=== PATIENT | female | born 1955 | race Caucasian/White ===

== ENCOUNTER 2020-03-12 06:20 | Observation (INO) ==
[2020-03-12 07:21] LABS: Basophils # 0.1 10*3/uL (0.0-0.2); Basophils % 0.4 % (0.0-0.8); Eosinophils # 0.3 10*3/uL (0.0-0.87); Eosinophils % 1.9 % (0.00-10.9); Hematocrit 39.4 VOL% (35.7-47.0); Hemoglobin 12.6 GM/DL (12.0-16.0); Immature Granulocytes % 0.7 %; Lymphocytes # 0.9 10*3/uL (1.4-4.0); Lymphocytes % 6.6 % (21.3-54.2); Mean Corpuscular Volume 95.9 FL (87-102); Mean Platelet Volume 8.6 FL (9.6-12.0); Monocytes % 6.2 % (1.7-12.7); Neutrophils % 84.2 % (38.7-73.9); Platelet Count 201 T/CUMM (130-400); Red Blood Count 4.11 MC/CUMM (3.8-5.5); Red Cell Distribution Width 13.7 % (9.3-17.3); White Blood Count 14.2 T/CUMM (4-12)
[2020-03-12 07:31] LABS: INR 1.4
[2020-03-12 07:47] LABS: Bilirubin,Urine Negative (Negative); Blood, Urine Negative (Negative); Glucose,Urine (UA) Negative (Negative); Ketones,Urine Negative (Negative); Nitrite,Urine Negative (Negative); Protein,Urine Negative; RBC,Urine 2 /HPF (0-4); Squamous Epithelial Cell,Urine Occasional /HPF (0-10); Urine Appearance CLEAR (Clear); Urine Color Straw (Yellow); Urine Specific Gravity 1.011 (1.001-1.035); Urine Urobilinogen < 2.0 EU/DL (0.2-1.0); WBC,Urine 1 /HPF (0-6)
[2020-03-12 07:59] LABS: Albumin 3.7 G/DL (3.4-5.0); Bilirubin,Total 1.2 MG/DL (0.2-1.0); Calcium 9.7 MG/DL (8.5-10.1); Osmolality,Calculated 266.9 MOS/KG (273-304); Total Protein 8.2 G/DL (6.4-8.3)
[2020-03-12] MEDS ORDERED: SODIUM BICARBONATE PEDIATRIC 5 MEQ/10 ML SYRINGE ONE (08:29)
[2020-03-12] MEDS ORDERED: CALCIUM CHLORIDE 1,000 MG/10 ML SYRINGE IV ONE (08:29)
[2020-03-12] MEDS ORDERED: DEXTROSE 50% 25 GM/50 ML SYRINGE IV ONE (08:29)
[2020-03-12] MEDS ORDERED: DEXTROSE 50% 25 GM/50 ML VIAL IV STA (08:36)
[2020-03-12] MEDS ORDERED: INSULIN REGULAR 100 UNIT/ML IV STA (08:37)
[2020-03-12] MEDS ORDERED: SODIUM BICARBONATE 50 MEQ/50 ML VIAL IV STA (08:37)
[2020-03-12] MEDS ORDERED: CALCIUM CHLORIDE 1,000 MG/10 ML SYRINGE IV STA (08:38)
[2020-03-12] MEDS ORDERED: DEXTROSE 50% 25 GM/50 ML VIAL IV PRN (10:19)
[2020-03-12] MEDS ORDERED: guaiFENesin/DM ER 600-30 MG TABLET PO PRN (10:19)
[2020-03-12] MEDS ORDERED: ACETAMINOPHEN 325 MG TABLET PO PRN (10:19)
[2020-03-12] MEDS ORDERED: ONDANSETRON 4 MG/2 ML VIAL IV PRN (10:19)
[2020-03-12] MEDS ORDERED: LACTULOSE 20 GM/30 ML UDCUP PO PRN (10:19)
[2020-03-12] MEDS ORDERED: hydrALAZINE 20 MG/1 ML VIAL IV PRN (10:19)
[2020-03-12] MEDS ORDERED: DOCUSATE SODIUM 100 MG CAPSULE PO PRN (10:19)
[2020-03-12] MEDS ORDERED: GLUCAGON 1 MG VIAL IM PRN (10:19)
[2020-03-12] MEDS ORDERED: ENOXAPARIN 40 MG/0.4 ML SYRINGE SUBCUT SCH (10:30)
[2020-03-12] MEDS: SODIUM CHLORIDE 0.9% 1,000 ML IV SCH ×2 (12:58→21:03)
[2020-03-12 13:00] LABS: Risk Ratio 1.79; Thyroid Stimulating Hormone 1.84 uIU/ml (0.358-3.74); VLDL CHOLESTEROL 5.2 MG/DL
[2020-03-12] MEDS ORDERED: SODIUM POLYSTYRENE SULFATE 15 GM/60 ML BOTTLE PO ONE (18:23)
[2020-03-12] MEDS: gemfibroziL 600 MG TABLET PO SCH (19:23)
[2020-03-12] MEDS: OMEGA 3 ACID ETHYL ESTERS 1 GM CAPSULE PO SCH (21:03)
[2020-03-12] MEDS: AMIODARONE 200 MG TABLET PO SCH (21:03)
[2020-03-12] MEDS: GABAPENTIN 300 MG CAPSULE PO SCH (21:03)
[2020-03-13 06:51] LABS: Basophils # 0.1 10*3/uL (0.0-0.2); Basophils % 0.6 % (0.0-0.8); Eosinophils # 0.3 10*3/uL (0.0-0.87); Eosinophils % 2.7 % (0.00-10.9); Hematocrit 37.6 VOL% (35.7-47.0); Hemoglobin 12.3 GM/DL (12.0-16.0); Immature Granulocytes % 0.8 %; Immature Granulocytes Absolute 0.07 #; Lymphocytes # 1.1 10*3/uL (1.4-4.0); Lymphocytes % 11.4 % (21.3-54.2); Mean Corpuscular HGB Conc 32.7 GM/DL (32-36); Mean Platelet Volume 9.6 FL (9.6-12.0); Monocytes % 7.8 % (1.7-12.7); Neutrophils % 76.7 % (38.7-73.9); Platelet Count 183 T/CUMM (130-400); Red Cell Distribution Width 13.6 % (9.3-17.3); White Blood Count 9.2 T/CUMM (4-12)
[2020-03-13 07:22] LABS: Calcium 9.6 MG/DL (8.5-10.1); Osmolality,Calculated 268.5 MOS/KG (273-304)
[2020-03-13] MEDS ORDERED: SODIUM POLYSTYRENE SULFATE 15 GM/60 ML BOTTLE PO ONE ×2 (07:51→16:28)
[2020-03-13] MEDS: POLYETHYLENE GLYCOL POWDER 17 GM PACK PO SCH (08:24)
[2020-03-13] MEDS: MULTIVITAMIN (CENTRUM) TABLET PO SCH (08:24)
[2020-03-13] MEDS: ASPIRIN EC 81 MG TABLET PO SCH (08:25)
[2020-03-13] MEDS: MELOXICAM 7.5 MG TABLET PO SCH (08:25)
[2020-03-13] MEDS: RIVAROXABAN 20 MG TABLET PO SCH (08:25)
[2020-03-13] MEDS: OMEGA 3 ACID ETHYL ESTERS 1 GM CAPSULE PO SCH ×2 (08:25→20:34)
[2020-03-13] MEDS: AMIODARONE 200 MG TABLET PO SCH ×2 (08:25→20:34)
[2020-03-13] MEDS: gemfibroziL 600 MG TABLET PO SCH ×2 (08:25→17:54)
[2020-03-13] MEDS: GABAPENTIN 300 MG CAPSULE PO SCH ×2 (08:25→20:34)
[2020-03-13] MEDS: VITAMIN E 400 UNIT CAPSULE PO SCH (09:07)
[2020-03-13 14:53] LABS: Calcium 9.1 MG/DL (8.5-10.1); Osmolality,Calculated 267.8 MOS/KG (273-304)
[2020-03-13] MEDS: SODIUM CHLORIDE 0.9% 1,000 ML IV SCH (17:49)
[2020-03-14] MEDS: SODIUM CHLORIDE 0.9% 1,000 ML IV SCH ×2 (06:08→10:06)
[2020-03-14 06:40] LABS: Basophils % 0.5 % (0.0-0.8); Eosinophils # 0.3 10*3/uL (0.0-0.87); Eosinophils % 3.1 % (0.00-10.9); Hematocrit 36.3 VOL% (35.7-47.0); Immature Granulocytes % 1.1 %; Immature Granulocytes Absolute 0.09 #; Lymphocytes # 1.3 10*3/uL (1.4-4.0); Mean Corpuscular HGB Conc 33.1 GM/DL (32-36); Mean Corpuscular Volume 93.3 FL (87-102); Mean Platelet Volume 8.9 FL (9.6-12.0); Monocytes % 8.4 % (1.7-12.7); Neutrophils % 71.9 % (38.7-73.9); Platelet Count 181 T/CUMM (130-400); Red Blood Count 3.89 MC/CUMM (3.8-5.5); Red Cell Distribution Width 13.6 % (9.3-17.3); White Blood Count 8.4 T/CUMM (4-12)
[2020-03-14 06:43] LABS: Calcium 8.6 MG/DL (8.5-10.1); Osmolality,Calculated 274.2 MOS/KG (273-304)
[2020-03-14] MEDS: ASPIRIN EC 81 MG TABLET PO SCH (08:49)
[2020-03-14] MEDS: POLYETHYLENE GLYCOL POWDER 17 GM PACK PO SCH (08:49)
[2020-03-14] MEDS: gemfibroziL 600 MG TABLET PO SCH (08:49)
[2020-03-14] MEDS: OMEGA 3 ACID ETHYL ESTERS 1 GM CAPSULE PO SCH (08:49)
[2020-03-14] MEDS: MULTIVITAMIN (CENTRUM) TABLET PO SCH (08:49)
[2020-03-14] MEDS: AMIODARONE 200 MG TABLET PO SCH (08:49)
[2020-03-14] MEDS: GABAPENTIN 300 MG CAPSULE PO SCH (08:49)
[2020-03-14] MEDS: MELOXICAM 7.5 MG TABLET PO SCH (08:49)
[2020-03-14] MEDS: VITAMIN E 400 UNIT CAPSULE PO SCH (08:49)
[2020-03-14] MEDS: RIVAROXABAN 20 MG TABLET PO SCH (08:49)
[2020-03-14 11:40] VITALS: BP 101/62
== END 2020-03-14 11:40 | disposition home or self-care (01) ==
LOC: EDBD → EDUNIT# → EDSEX → N.ED 06:20 → N.EDINP 06:20 → N.4E 14:37
PROVIDERS: ADMIT Internal Medicine; ATTEND Internal Medicine

== ENCOUNTER 2020-09-10 13:41 | Inpatient (IN) ==
[2020-09-10] MEDS ORDERED: cefTRIAXone 1,000 MG in SODIUM CHLORIDE 0.9% 100 ML IV STA (14:07)
[2020-09-10 14:56] LABS: Basophils # 0.1 10*3/uL (0.0-0.2); Basophils % 0.6 % (0.0-0.8); Eosinophils # 0.3 10*3/uL (0.0-0.87); Eosinophils % 2.5 % (0.00-10.9); Hemoglobin 10.9 GM/DL (12.0-16.0); Immature Granulocytes % 0.9 %; Immature Granulocytes Absolute 0.11 #; Lymphocytes # 1.4 10*3/uL (1.4-4.0); Lymphocytes % 11.2 % (21.3-54.2); Mean Corpuscular HGB Conc 31.1 GM/DL (32-36); Mean Corpuscular Volume 91.1 FL (87-102); Monocytes % 8.7 % (1.7-12.7); Neutrophils % 76.1 % (38.7-73.9); Platelet Count 263 T/CUMM (130-400); Red Blood Count 3.84 MC/CUMM (3.8-5.5); Red Cell Distribution Width 14.2 % (9.3-17.3); White Blood Count 12.3 T/CUMM (4-12)
[2020-09-10 15:14] LABS: Albumin 2.5 G/DL (3.4-5.0); Bilirubin,Total 0.6 MG/DL (0.2-1.0); Potassium 4.6 MMOL/L (3.5-5.1); Total Protein 6.8 G/DL (6.4-8.2)
[2020-09-10] MEDS ORDERED: GLUCAGON 1 MG VIAL IM PRN (17:09)
[2020-09-10] MEDS ORDERED: hydrALAZINE 20 MG/1 ML VIAL IV PRN (17:09)
[2020-09-10] MEDS ORDERED: ACETAMINOPHEN 325 MG TABLET PO PRN (17:09)
[2020-09-10] MEDS ORDERED: DEXTROSE 50% 25 GM/50 ML VIAL IV PRN (17:09)
[2020-09-10] MEDS ORDERED: ONDANSETRON 4 MG/2 ML VIAL IV PRN (17:09)
[2020-09-10] MEDS ORDERED: MORPHINE 4 MG/1 ML VIAL IV PRN (17:09)
[2020-09-10] MEDS ORDERED: ENOXAPARIN 40 MG/0.4 ML SYRINGE SUBCUT SCH (17:30)
[2020-09-10] MEDS: SODIUM CHLORIDE 0.9% 1,000 ML IV SCH (19:26)
[2020-09-10] MEDS: GABAPENTIN 300 MG CAPSULE PO SCH (22:19)
[2020-09-10] MEDS: VANCOMYCIN INJ 2,000 MG in SODIUM CHLORIDE 0.9% 500 ML IV SCH (22:20)
[2020-09-10] MEDS: AMIODARONE 200 MG TABLET PO SCH (22:20)
[2020-09-11 06:19] LABS: Basophils # 0.1 10*3/uL (0.0-0.2); Basophils % 0.6 % (0.0-0.8); Eosinophils # 0.4 10*3/uL (0.0-0.87); Eosinophils % 3.9 % (0.00-10.9); Hematocrit 32.7 VOL% (35.7-47.0); Hemoglobin 10.1 GM/DL (12.0-16.0); Immature Granulocytes Absolute 0.09 #; Lymphocytes # 1.1 10*3/uL (1.4-4.0); Lymphocytes % 11.7 % (21.3-54.2); Mean Corpuscular HGB Conc 30.9 GM/DL (32-36); Mean Corpuscular Volume 91.9 FL (87-102); Mean Platelet Volume 9.1 FL (9.6-12.0); Monocytes % 9.4 % (1.7-12.7); Neutrophils % 73.4 % (38.7-73.9); Platelet Count 245 T/CUMM (130-400); Red Blood Count 3.56 MC/CUMM (3.8-5.5); Red Cell Distribution Width 14.2 % (9.3-17.3); White Blood Count 9.5 T/CUMM (4-12)
[2020-09-11 06:37] LABS: Calcium 8.5 MG/DL (8.5-10.1); Osmolality,Calculated 283.8 MOS/KG (273-304); Potassium 4.8 MMOL/L (3.5-5.1)
[2020-09-11] MEDS: VANCOMYCIN INJ 2,000 MG in SODIUM CHLORIDE 0.9% 500 ML IV SCH (09:14)
[2020-09-11] MEDS: GABAPENTIN 300 MG CAPSULE PO SCH ×2 (09:15→22:13)
[2020-09-11] MEDS: gemfibroziL 600 MG TABLET PO SCH ×2 (09:15→16:54)
[2020-09-11] MEDS: PANTOPRAZOLE 40 MG TABLET PO SCH (09:15)
[2020-09-11] MEDS: AMIODARONE 200 MG TABLET PO SCH ×2 (09:15→22:14)
[2020-09-11] MEDS ORDERED: LIDOCAINE 1%/EPI INJ 20 ML VIAL ONE (10:24)
[2020-09-11] MEDS ORDERED: BUPIVACAINE MPF 0.25% 30 ML VIAL ONE (10:24)
[2020-09-11] MEDS ORDERED: SEVOFLURANE 1 UNIT/15 MINUTE INH ONE ×2 (10:44→12:01)
[2020-09-11] MEDS ORDERED: LIDOCAINE 2% 5 ML VIAL ONE (10:44)
[2020-09-11] MEDS ORDERED: propofoL 200 MG/20 ML VIAL IV ONE (10:44)
[2020-09-11] MEDS ORDERED: MIDAZOLAM 2 MG/2 ML VIAL ONE (10:45)
[2020-09-11] MEDS ORDERED: fentaNYL 100 MCG/2 ML VIAL ONE (10:45)
[2020-09-11] MEDS ORDERED: THROMBIN TOPICAL (RECOMBINANT) 5,000 UNIT VIAL TOP ONE (11:40)
[2020-09-11] MEDS ORDERED: SPRAY APPLICATOR KIT 1 EACH MISC ONE (11:41)
[2020-09-11] MEDS: SODIUM CHLORIDE 0.9% 1,000 ML IV SCH (18:41)
[2020-09-11] MEDS: cefTRIAXone 1,000 MG in SODIUM CHLORIDE 0.9% 100 ML IV SCH (22:14)
[2020-09-12] MEDS: VANCOMYCIN INJ 2,000 MG in SODIUM CHLORIDE 0.9% 500 ML IV SCH ×2 (02:31→22:20)
[2020-09-12] MEDS: SODIUM CHLORIDE 0.9% 1,000 ML IV SCH ×3 (02:31→21:37)
[2020-09-12 05:57] LABS: Basophils # 0.1 10*3/uL (0.0-0.2); Basophils % 0.7 % (0.0-0.8); Eosinophils # 0.3 10*3/uL (0.0-0.87); Eosinophils % 3.7 % (0.00-10.9); Hematocrit 31.4 VOL% (35.7-47.0); Hemoglobin 10.1 GM/DL (12.0-16.0); Immature Granulocytes % 0.6 %; Immature Granulocytes Absolute 0.05 #; Lymphocytes # 1.4 10*3/uL (1.4-4.0); Lymphocytes % 16.2 % (21.3-54.2); Mean Corpuscular HGB Conc 32.2 GM/DL (32-36); Mean Corpuscular Volume 90.5 FL (87-102); Monocytes % 8.3 % (1.7-12.7); Neutrophils % 70.5 % (38.7-73.9); Platelet Count 220 T/CUMM (130-400); Red Blood Count 3.47 MC/CUMM (3.8-5.5); Red Cell Distribution Width 13.8 % (9.3-17.3); White Blood Count 8.3 T/CUMM (4-12)
[2020-09-12 06:12] LABS: Calcium 8.3 MG/DL (8.5-10.1); Potassium 4.2 MMOL/L (3.5-5.1)
[2020-09-12] MEDS: gemfibroziL 600 MG TABLET PO SCH ×2 (08:45→16:31)
[2020-09-12] MEDS: AMIODARONE 200 MG TABLET PO SCH ×2 (08:45→21:39)
[2020-09-12] MEDS: GABAPENTIN 300 MG CAPSULE PO SCH ×2 (08:45→21:39)
[2020-09-12] MEDS: PANTOPRAZOLE 40 MG TABLET PO SCH (08:45)
[2020-09-12] MEDS: SODIUM HYPOCHLORITE 0.25% IRRIG 473 ML BOTTLE TOP SCH (14:01)
[2020-09-12] MEDS: cefTRIAXone 1,000 MG in SODIUM CHLORIDE 0.9% 100 ML IV SCH (21:37)
[2020-09-12] MEDS: CALCIUM (CARBONATE)/VITAMIN D 600 MG-400 UNIT TABLET PO SCH (21:39)
[2020-09-13 06:25] LABS: Basophils # 0.1 10*3/uL (0.0-0.2); Basophils % 1.2 % (0.0-0.8); Eosinophils # 0.3 10*3/uL (0.0-0.87); Eosinophils % 4.3 % (0.00-10.9); Hematocrit 31.5 VOL% (35.7-47.0); Hemoglobin 10.2 GM/DL (12.0-16.0); Immature Granulocytes Absolute 0.07 #; Lymphocytes # 1.1 10*3/uL (1.4-4.0); Lymphocytes % 15.3 % (21.3-54.2); Mean Corpuscular HGB Conc 32.4 GM/DL (32-36); Mean Corpuscular Volume 90.3 FL (87-102); Mean Platelet Volume 9.3 FL (9.6-12.0); Monocytes % 7.9 % (1.7-12.7); Neutrophils % 70.3 % (38.7-73.9); Platelet Count 226 T/CUMM (130-400); Red Blood Count 3.49 MC/CUMM (3.8-5.5); Red Cell Distribution Width 13.7 % (9.3-17.3); White Blood Count 6.9 T/CUMM (4-12)
[2020-09-13 06:45] LABS: Calcium 8.8 MG/DL (8.5-10.1); Osmolality,Calculated 274.8 MOS/KG (273-304); Potassium 4.3 MMOL/L (3.5-5.1)
[2020-09-13] MEDS: SODIUM CHLORIDE 0.9% 1,000 ML IV SCH ×2 (07:02→12:44)
[2020-09-13] MEDS ORDERED: SPIRONOLACTONE 100 MG TABLET PO SCH (08:00)
[2020-09-13] MEDS: CALCIUM (CARBONATE)/VITAMIN D 600 MG-400 UNIT TABLET PO SCH ×2 (08:32→21:29)
[2020-09-13] MEDS: RIVAROXABAN 20 MG TABLET PO SCH (08:32)
[2020-09-13] MEDS: gemfibroziL 600 MG TABLET PO SCH ×2 (08:32→16:48)
[2020-09-13] MEDS: AMIODARONE 200 MG TABLET PO SCH ×2 (08:32→21:29)
[2020-09-13] MEDS: SODIUM HYPOCHLORITE 0.25% IRRIG 473 ML BOTTLE TOP SCH (08:32)
[2020-09-13] MEDS: GABAPENTIN 300 MG CAPSULE PO SCH ×2 (08:32→21:29)
[2020-09-13] MEDS: PANTOPRAZOLE 40 MG TABLET PO SCH (08:32)
[2020-09-13] MEDS: POTASSIUM CHLORIDE 20 MEQ TABLET PO SCH (08:32)
[2020-09-13] MEDS: cefTRIAXone 1,000 MG in SODIUM CHLORIDE 0.9% 100 ML IV SCH (21:28)
[2020-09-14] MEDS: SODIUM CHLORIDE 0.9% 1,000 ML IV SCH (02:58)
[2020-09-14 05:59] LABS: Basophils # 0.1 10*3/uL (0.0-0.2); Basophils % 0.9 % (0.0-0.8); Eosinophils # 0.4 10*3/uL (0.0-0.87); Eosinophils % 3.8 % (0.00-10.9); Hematocrit 32.5 VOL% (35.7-47.0); Hemoglobin 10.5 GM/DL (12.0-16.0); Immature Granulocytes % 1.4 %; Immature Granulocytes Absolute 0.13 #; Lymphocytes # 1.4 10*3/uL (1.4-4.0); Lymphocytes % 14.7 % (21.3-54.2); Mean Corpuscular HGB Conc 32.3 GM/DL (32-36); Monocytes % 6.9 % (1.7-12.7); Neutrophils % 72.3 % (38.7-73.9); Platelet Count 269 T/CUMM (130-400); Red Blood Count 3.61 MC/CUMM (3.8-5.5); Red Cell Distribution Width 13.4 % (9.3-17.3); White Blood Count 9.3 T/CUMM (4-12)
[2020-09-14 06:17] LABS: Calcium 9.1 MG/DL (8.5-10.1); Osmolality,Calculated 274.8 MOS/KG (273-304); Potassium 3.9 MMOL/L (3.5-5.1)
[2020-09-14] MEDS: AMIODARONE 200 MG TABLET PO SCH (08:03)
[2020-09-14] MEDS: POTASSIUM CHLORIDE 20 MEQ TABLET PO SCH (08:03)
[2020-09-14] MEDS: GABAPENTIN 300 MG CAPSULE PO SCH (08:03)
[2020-09-14] MEDS: PANTOPRAZOLE 40 MG TABLET PO SCH (08:03)
[2020-09-14] MEDS: gemfibroziL 600 MG TABLET PO SCH ×2 (08:03→16:34)
[2020-09-14] MEDS: CALCIUM (CARBONATE)/VITAMIN D 600 MG-400 UNIT TABLET PO SCH (08:03)
[2020-09-14] MEDS: RIVAROXABAN 20 MG TABLET PO SCH (08:03)
[2020-09-14] MEDS: SODIUM HYPOCHLORITE 0.25% IRRIG 473 ML BOTTLE TOP SCH (08:07)
[2020-09-14 15:51] VITALS: BP 121/64
== END 2020-09-14 17:00 | disposition swing bed (61) | DRG 264 ==
LOC: N.ED 13:41 → N.EDINP 17:09 → SUATTDRO 17:09 → N.EDINP 18:25 → N.5E 18:44
PROVIDERS: ADMIT Phlebology; ATTEND Internal Medicine

== ENCOUNTER 2020-10-22 13:22 | Inpatient (IN) ==
[2020-10-22] MEDS ORDERED: SODIUM CHLORIDE 0.9% 1,000 ML IV STA (14:05)
[2020-10-22] MEDS ORDERED: cefTRIAXone 1,000 MG in SODIUM CHLORIDE 0.9% 100 ML IV STA (14:05)
[2020-10-22 15:18] LABS: Basophils # 0.1 10*3/uL (0.0-0.2); Basophils % 0.8 % (0.0-0.8); Eosinophils # 0.5 10*3/uL (0.0-0.87); Eosinophils % 5.1 % (0.00-10.9); Hemoglobin 10.5 GM/DL (12.0-16.0); Immature Granulocytes % 0.9 %; Immature Granulocytes Absolute 0.09 #; Lymphocytes # 1.6 10*3/uL (1.4-4.0); Lymphocytes % 15.4 % (21.3-54.2); Mean Corpuscular HGB Conc 30.9 GM/DL (32-36); Mean Corpuscular Volume 91.9 FL (87-102); Mean Platelet Volume 8.8 FL (9.6-12.0); Neutrophils % 66.8 % (38.7-73.9); Platelet Count 267 T/CUMM (130-400); Red Cell Distribution Width 14.6 % (9.3-17.3); White Blood Count 10.1 T/CUMM (4-12)
[2020-10-22 15:48] LABS: Calcium 8.8 MG/DL (8.5-10.1); Osmolality,Calculated 275.2 MOS/KG (273-304); Potassium 4.7 MMOL/L (3.5-5.1)
[2020-10-22 15:53] LABS: Bilirubin,Urine Negative (Negative); Blood, Urine Large mg/dL (Negative); Glucose,Urine (UA) Negative (Negative); Ketones,Urine Negative (Negative); Mucus,Urine Occasional /LPF (Occasional); Nitrite,Urine Positive (Negative); Protein,Urine Negative; RBC,Urine 227 /HPF (0-4); Squamous Epithelial Cell,Urine Occasional /HPF (0-10); Urine Appearance Slightly Hazy (Clear); Urine Color Yellow (Yellow); Urine Specific Gravity 1.009 (1.001-1.035); Urine Urobilinogen < 2.0 EU/DL (0.2-1.0)
[2020-10-22] MEDS ORDERED: DEXTROSE 50% 25 GM/50 ML VIAL IV PRN (19:04)
[2020-10-22] MEDS ORDERED: GLUCAGON 1 MG VIAL IM PRN (19:04)
[2020-10-22] MEDS ORDERED: ONDANSETRON 4 MG/2 ML VIAL IV PRN (19:04)
[2020-10-22] MEDS: AMIODARONE 200 MG TABLET PO SCH (21:23)
[2020-10-22] MEDS: GABAPENTIN 300 MG CAPSULE PO SCH (21:23)
[2020-10-22] MEDS: CIPROFLOXACIN INJ 400 MG/200 ML PREMIX IV SCH (21:25)
[2020-10-22] MEDS: OMEGA 3 ACID ETHYL ESTERS 1 GM CAPSULE PO SCH (23:57)
[2020-10-23] MEDS: traZODone 50 MG TABLET PO SCH ×2 (03:11→21:36)
[2020-10-23 05:57] LABS: Basophils # 0.1 10*3/uL (0.0-0.2); Basophils % 1.1 % (0.0-0.8); Eosinophils # 0.8 10*3/uL (0.0-0.87); Eosinophils % 10.4 % (0.00-10.9); Hematocrit 32.7 VOL% (35.7-47.0); Hemoglobin 9.9 GM/DL (12.0-16.0); Immature Granulocytes % 0.7 %; Immature Granulocytes Absolute 0.05 #; Lymphocytes # 1.4 10*3/uL (1.4-4.0); Lymphocytes % 19.7 % (21.3-54.2); Mean Corpuscular HGB Conc 30.3 GM/DL (32-36); Mean Corpuscular Volume 91.1 FL (87-102); Mean Platelet Volume 8.8 FL (9.6-12.0); Monocytes % 10.8 % (1.7-12.7); Neutrophils % 57.3 % (38.7-73.9); Platelet Count 251 T/CUMM (130-400); Red Blood Count 3.59 MC/CUMM (3.8-5.5); Red Cell Distribution Width 14.5 % (9.3-17.3); White Blood Count 7.2 T/CUMM (4-12)
[2020-10-23 06:13] LABS: Calcium 8.4 MG/DL (8.5-10.1); Osmolality,Calculated 272.2 MOS/KG (273-304); Potassium 3.9 MMOL/L (3.5-5.1)
[2020-10-23] MEDS: CIPROFLOXACIN INJ 400 MG/200 ML PREMIX IV SCH ×2 (06:36→23:30)
[2020-10-23] MEDS: gemfibroziL 600 MG TABLET PO SCH ×2 (06:37→15:50)
[2020-10-23] MEDS: MELOXICAM 7.5 MG TABLET PO SCH (08:59)
[2020-10-23] MEDS: CALCIUM (CARBONATE)/VITAMIN D 600 MG-400 UNIT TABLET PO SCH ×2 (09:00→21:35)
[2020-10-23] MEDS: RIVAROXABAN 20 MG TABLET PO SCH (09:00)
[2020-10-23] MEDS: ASPIRIN EC 81 MG TABLET PO SCH (09:00)
[2020-10-23] MEDS: lisinopriL 5 MG TABLET PO SCH (09:00)
[2020-10-23] MEDS: OMEGA 3 ACID ETHYL ESTERS 1 GM CAPSULE PO SCH ×2 (09:00→21:35)
[2020-10-23] MEDS: AMIODARONE 200 MG TABLET PO SCH ×2 (09:00→21:36)
[2020-10-23] MEDS: VITAMIN E 400 UNIT CAPSULE PO SCH (09:00)
[2020-10-23] MEDS: SPIRONOLACTONE 50 MG TABLET PO SCH (09:01)
[2020-10-23] MEDS: MULTIVITAMIN (CENTRUM) TABLET PO SCH (09:02)
[2020-10-23] MEDS: POTASSIUM CHLORIDE 20 MEQ TABLET PO SCH (09:02)
[2020-10-23] MEDS: GABAPENTIN 300 MG CAPSULE PO SCH ×2 (09:02→21:35)
[2020-10-23] MEDS: PANTOPRAZOLE 40 MG TABLET PO SCH (09:02)
[2020-10-23] MEDS: FUROSEMIDE 20 MG TABLET PO SCH (09:02)
[2020-10-23] MEDS ORDERED: SKIN HEALING OINT (AQUAPHOR) 50 GM TUBE TOP PRN (11:13)
[2020-10-23] MEDS: SODIUM HYPOCHLORITE 0.25% IRRIG 473 ML BOTTLE TOP SCH (11:35)
[2020-10-23] MEDS ORDERED: TUBERCULIN SKIN TEST 0.1 ML SYRINGE INTRADERM ONE (13:00)
[2020-10-23] MEDS: NYSTATIN POWDER 15 GM BOTTLE TOP SCH ×2 (15:29→21:55)
[2020-10-24 06:14] LABS: Basophils # 0.1 10*3/uL (0.0-0.2); Eosinophils # 0.8 10*3/uL (0.0-0.87); Eosinophils % 10.5 % (0.00-10.9); Hematocrit 32.6 VOL% (35.7-47.0); Hemoglobin 10.1 GM/DL (12.0-16.0); Immature Granulocytes % 0.9 %; Immature Granulocytes Absolute 0.07 #; Lymphocytes # 1.3 10*3/uL (1.4-4.0); Mean Corpuscular Volume 91.1 FL (87-102); Mean Platelet Volume 8.8 FL (9.6-12.0); Neutrophils % 62.6 % (38.7-73.9); Platelet Count 269 T/CUMM (130-400); Red Blood Count 3.58 MC/CUMM (3.8-5.5); Red Cell Distribution Width 14.5 % (9.3-17.3); White Blood Count 7.9 T/CUMM (4-12)
[2020-10-24 06:47] LABS: Calcium 8.4 MG/DL (8.5-10.1); Osmolality,Calculated 268.7 MOS/KG (273-304); Potassium 4.5 MMOL/L (3.5-5.1)
[2020-10-24] MEDS: MULTIVITAMIN (CENTRUM) TABLET PO SCH (08:39)
[2020-10-24] MEDS: ASPIRIN EC 81 MG TABLET PO SCH (08:40)
[2020-10-24] MEDS: MELOXICAM 7.5 MG TABLET PO SCH (08:40)
[2020-10-24] MEDS: OMEGA 3 ACID ETHYL ESTERS 1 GM CAPSULE PO SCH ×2 (08:40→21:08)
[2020-10-24] MEDS: FUROSEMIDE 20 MG TABLET PO SCH (08:40)
[2020-10-24] MEDS: AMIODARONE 200 MG TABLET PO SCH ×2 (08:40→21:08)
[2020-10-24] MEDS: gemfibroziL 600 MG TABLET PO SCH ×2 (08:40→16:06)
[2020-10-24] MEDS: GABAPENTIN 300 MG CAPSULE PO SCH ×2 (08:40→21:08)
[2020-10-24] MEDS: PANTOPRAZOLE 40 MG TABLET PO SCH (08:40)
[2020-10-24] MEDS: VITAMIN E 400 UNIT CAPSULE PO SCH (08:40)
[2020-10-24] MEDS: CALCIUM (CARBONATE)/VITAMIN D 600 MG-400 UNIT TABLET PO SCH ×2 (08:40→21:08)
[2020-10-24] MEDS: RIVAROXABAN 20 MG TABLET PO SCH (08:41)
[2020-10-24] MEDS: CIPROFLOXACIN INJ 400 MG/200 ML PREMIX IV SCH (08:41)
[2020-10-24] MEDS: POTASSIUM CHLORIDE 20 MEQ TABLET PO SCH (08:41)
[2020-10-24] MEDS: SODIUM HYPOCHLORITE 0.25% IRRIG 473 ML BOTTLE TOP SCH (08:45)
[2020-10-24] MEDS: NYSTATIN POWDER 15 GM BOTTLE TOP SCH ×2 (08:45→21:11)
[2020-10-24] MEDS: SPIRONOLACTONE 50 MG TABLET PO SCH (08:45)
[2020-10-24] MEDS: lisinopriL 5 MG TABLET PO SCH (08:45)
[2020-10-24] MEDS ORDERED: cefTRIAXone 1,000 MG in SODIUM CHLORIDE 0.9% 100 ML IV SCH (13:00)
[2020-10-24] MEDS: ACETAMINOPHEN 325 MG TABLET PO PRN (14:04)
[2020-10-24] MEDS: traZODone 50 MG TABLET PO SCH (21:08)
[2020-10-24] MEDS: cephALEXin 500 MG CAPSULE PO SCH (21:08)
[2020-10-25 06:31] LABS: Calcium 8.9 MG/DL (8.5-10.1); Osmolality,Calculated 268.7 MOS/KG (273-304); Potassium 4.9 MMOL/L (3.5-5.1)
[2020-10-25] MEDS: RIVAROXABAN 20 MG TABLET PO SCH (10:15)
[2020-10-25] MEDS: gemfibroziL 600 MG TABLET PO SCH ×2 (10:15→16:30)
[2020-10-25] MEDS: ACETAMINOPHEN 325 MG TABLET PO PRN (10:15)
[2020-10-25] MEDS: cephALEXin 500 MG CAPSULE PO SCH ×2 (10:15→21:28)
[2020-10-25] MEDS: ASPIRIN EC 81 MG TABLET PO SCH (10:15)
[2020-10-25] MEDS: CALCIUM (CARBONATE)/VITAMIN D 600 MG-400 UNIT TABLET PO SCH ×2 (10:16→21:28)
[2020-10-25] MEDS: AMIODARONE 200 MG TABLET PO SCH ×2 (10:16→21:28)
[2020-10-25] MEDS: OMEGA 3 ACID ETHYL ESTERS 1 GM CAPSULE PO SCH ×2 (10:17→21:28)
[2020-10-25] MEDS: MELOXICAM 7.5 MG TABLET PO SCH (10:17)
[2020-10-25] MEDS: GABAPENTIN 300 MG CAPSULE PO SCH ×2 (10:17→21:28)
[2020-10-25] MEDS: FUROSEMIDE 20 MG TABLET PO SCH (10:17)
[2020-10-25] MEDS: VITAMIN E 400 UNIT CAPSULE PO SCH (10:17)
[2020-10-25] MEDS: lisinopriL 5 MG TABLET PO SCH (10:18)
[2020-10-25] MEDS: MULTIVITAMIN (CENTRUM) TABLET PO SCH (10:18)
[2020-10-25] MEDS: PANTOPRAZOLE 40 MG TABLET PO SCH (10:18)
[2020-10-25] MEDS: POTASSIUM CHLORIDE 20 MEQ TABLET PO SCH (10:18)
[2020-10-25] MEDS: SPIRONOLACTONE 50 MG TABLET PO SCH (10:19)
[2020-10-25] MEDS: NYSTATIN POWDER 15 GM BOTTLE TOP SCH ×2 (14:17→21:31)
[2020-10-25] MEDS: SODIUM HYPOCHLORITE 0.25% IRRIG 473 ML BOTTLE TOP SCH (17:15)
[2020-10-25] MEDS: traZODone 50 MG TABLET PO SCH (21:28)
[2020-10-26] MEDS: SPIRONOLACTONE 50 MG TABLET PO SCH (09:40)
[2020-10-26] MEDS: GABAPENTIN 300 MG CAPSULE PO SCH (09:40)
[2020-10-26] MEDS: POTASSIUM CHLORIDE 20 MEQ TABLET PO SCH (09:40)
[2020-10-26] MEDS: OMEGA 3 ACID ETHYL ESTERS 1 GM CAPSULE PO SCH (09:41)
[2020-10-26] MEDS: lisinopriL 5 MG TABLET PO SCH (09:41)
[2020-10-26] MEDS: RIVAROXABAN 20 MG TABLET PO SCH (09:41)
[2020-10-26] MEDS: MELOXICAM 7.5 MG TABLET PO SCH (09:41)
[2020-10-26] MEDS: gemfibroziL 600 MG TABLET PO SCH ×2 (09:41→17:07)
[2020-10-26] MEDS: VITAMIN E 400 UNIT CAPSULE PO SCH (09:41)
[2020-10-26] MEDS: AMIODARONE 200 MG TABLET PO SCH (09:41)
[2020-10-26] MEDS: FUROSEMIDE 20 MG TABLET PO SCH (09:41)
[2020-10-26] MEDS: MULTIVITAMIN (CENTRUM) TABLET PO SCH (09:42)
[2020-10-26] MEDS: ASPIRIN EC 81 MG TABLET PO SCH (09:42)
[2020-10-26] MEDS: PANTOPRAZOLE 40 MG TABLET PO SCH (09:42)
[2020-10-26] MEDS: CALCIUM (CARBONATE)/VITAMIN D 600 MG-400 UNIT TABLET PO SCH (09:42)
[2020-10-26] MEDS: cephALEXin 500 MG CAPSULE PO SCH (11:20)
[2020-10-26] MEDS: SODIUM HYPOCHLORITE 0.25% IRRIG 473 ML BOTTLE TOP SCH (12:08)
[2020-10-26] MEDS: NYSTATIN POWDER 15 GM BOTTLE TOP SCH (12:24)
[2020-10-26 19:01] VITALS: BP 98/48
== END 2020-10-26 17:20 | DRG 698 ==
LOC: EDUNIT# → EDBD → N.ED 13:22 → SUATTDRO 19:04 → N.EDINP 19:04 → N.5E 21:59
PROVIDERS: ADMIT Internal Medicine; ATTEND Internal Medicine Nephrology

== ENCOUNTER 2022-04-30 09:55 | Inpatient (IN) ==
[2022-04-30] MEDS ORDERED: PIPERACILLIN/TAZOBACTAM 3,375 MG in SODIUM CHLORIDE 0.9% 100 ML IV STA (10:50)
[2022-04-30] MEDS ORDERED: SODIUM CHLORIDE 0.9% 500 ML IV STA (10:50)
[2022-04-30 12:00] LABS: Basophils % 0.2 % (0.0-0.8); Eosinophils % 0.2 % (0.00-10.9); Hematocrit 36.5 VOL% (35.7-47.0); Hemoglobin 11.4 GM/DL (12.0-16.0); Immature Granulocytes % 1.3 %; Immature Granulocytes Absolute 0.22 #; Lymphocytes # 0.6 10*3/uL (1.4-4.0); Lymphocytes % 3.5 % (21.3-54.2); Mean Corpuscular HGB Conc 31.2 GM/DL (32-36); Mean Corpuscular Volume 91.3 FL (87-102); Mean Platelet Volume 9.5 FL (9.6-12.0); Monocytes # 0.6 10*3/uL (0.11-0.8); Monocytes % 3.7 % (1.7-12.7); Neutrophils % 91.1 % (38.7-73.9); Platelet Count 151 T/CUMM (130-400); Red Cell Distribution Width 14.7 % (9.3-17.3); White Blood Count 17.1 T/CUMM (4-12)
[2022-04-30 12:13] LABS: Bilirubin,Urine Negative (Negative); Blood, Urine Moderate mg/dL (Negative); Glucose,Urine (UA) Negative (Negative); Ketones,Urine Negative (Negative); Mucus,Urine Occasional /LPF (Occasional); Nitrite,Urine Negative (Negative); Protein,Urine Negative (Negative); RBC,Urine 15-20 /HPF (0-4); Urine Appearance Clear (Clear); Urine Color Yellow (Yellow)
[2022-04-30 12:19] LABS: Albumin 2.9 G/DL (3.4-5.0); Bilirubin,Total 0.7 MG/DL (0.20-1.00); Calcium 8.6 MG/DL (8.5-10.1); Osmolality,Calculated 273.2 MOS/KG (273-304); Potassium 4.2 MMOL/L (3.5-5.1); Total Protein 7.2 G/DL (6.4-8.2)
[2022-04-30 12:49] LABS: Anisocytosis 1+; Band Neutrophils 17 % (0-10); Lymphocytes 7 % (20-55); Macrocytosis Slight; Platelet Estimate Normal; Total Cells Counted 100
[2022-04-30] MEDS ORDERED: ONDANSETRON 4 MG/2 ML VIAL IV PRN (14:19)
[2022-04-30] MEDS ORDERED: VANCOMYCIN INJ 1,500 MG in SODIUM CHLORIDE 0.9% 250 ML IV SCH (14:30)
[2022-04-30] MEDS ORDERED: NYSTATIN POWDER 15 GM BOTTLE TOP PRN (14:47)
[2022-04-30] MEDS: SODIUM CHLORIDE 0.9% 1,000 ML IV SCH (16:45)
[2022-04-30] MEDS: VANCOMYCIN INJ 2,000 MG in SODIUM CHLORIDE 0.9% 500 ML IV SCH (16:45)
[2022-04-30] MEDS: CELECOXIB 100 MG CAPSULE PO SCH (21:50)
[2022-04-30] MEDS: AMIODARONE 200 MG TABLET PO SCH (21:50)
[2022-04-30] MEDS: gemfibroziL 600 MG TABLET PO SCH (21:50)
[2022-04-30] MEDS: GABAPENTIN 300 MG CAPSULE PO SCH (21:50)
[2022-04-30] MEDS: CALCIUM (CARBONATE)/VITAMIN D 600 MG-400 UNIT TABLET PO SCH (21:51)
[2022-04-30] MEDS: ACETAMINOPHEN 325 MG TABLET PO PRN (21:51)
[2022-04-30] MEDS: PIPERACILLIN/TAZOBACTAM 3,375 MG in SODIUM CHLORIDE 0.9% 100 ML IV SCH (21:53)
[2022-04-30] MEDS: RIVAROXABAN 20 MG TABLET PO SCH (23:39)
[2022-05-01] MEDS: PIPERACILLIN/TAZOBACTAM 3,375 MG in SODIUM CHLORIDE 0.9% 100 ML IV SCH ×3 (04:24→21:19)
[2022-05-01 05:16] LABS: Basophils % 0.3 % (0.0-0.8); Eosinophils # 0.1 10*3/uL (0.0-0.87); Eosinophils % 0.8 % (0.00-10.9); Hematocrit 35.4 VOL% (35.7-47.0); Hemoglobin 11.3 GM/DL (12.0-16.0); Immature Granulocytes % 1.5 %; Immature Granulocytes Absolute 0.23 #; Lymphocytes # 0.7 10*3/uL (1.4-4.0); Lymphocytes % 4.6 % (21.3-54.2); Mean Corpuscular HGB Conc 31.9 GM/DL (32-36); Mean Corpuscular Volume 89.6 FL (87-102); Mean Platelet Volume 9.3 FL (9.6-12.0); Monocytes # 0.6 10*3/uL (0.11-0.8); Monocytes % 3.9 % (1.7-12.7); Neutrophils % 88.9 % (38.7-73.9); Platelet Count 142 T/CUMM (130-400); Red Blood Count 3.95 MC/CUMM (3.8-5.5); Red Cell Distribution Width 14.6 % (9.3-17.3); White Blood Count 15.3 T/CUMM (4-12)
[2022-05-01 05:38] LABS: Hypochromia Slight; Lymphocytes 5 % (20-55); Microcytosis Slight; Platelet Estimate Adequate; Total Cells Counted 100
[2022-05-01 06:01] LABS: Albumin 2.6 G/DL (3.4-5.0); Calcium 8.9 MG/DL (8.5-10.1); Osmolality,Calculated 275.1 MOS/KG (273-304); Potassium 3.7 MMOL/L (3.5-5.1); Risk Ratio 1.91; Thyroid Stimulating Hormone 1.29 uIU/ml (0.358-3.74); Total Protein 6.9 G/DL (6.4-8.2); VLDL Cholesterol 12.8 MG/DL
[2022-05-01] MEDS: OMEGA 3 ACID ETHYL ESTERS 1 GM CAPSULE PO SCH (09:07)
[2022-05-01] MEDS: AMIODARONE 200 MG TABLET PO SCH ×2 (09:07→21:15)
[2022-05-01] MEDS: ASPIRIN EC 81 MG TABLET PO SCH (09:07)
[2022-05-01] MEDS: SPIRONOLACTONE 100 MG TABLET PO SCH (09:07)
[2022-05-01] MEDS: GABAPENTIN 300 MG CAPSULE PO SCH ×2 (09:07→21:19)
[2022-05-01] MEDS: CALCIUM (CARBONATE)/VITAMIN D 600 MG-400 UNIT TABLET PO SCH ×2 (09:07→21:15)
[2022-05-01] MEDS: gemfibroziL 600 MG TABLET PO SCH ×2 (09:07→21:15)
[2022-05-01] MEDS: VITAMIN E 400 UNIT CAPSULE PO SCH (09:07)
[2022-05-01] MEDS: MULTIVITAMIN (CENTRUM) TABLET PO SCH (09:07)
[2022-05-01] MEDS: ACETAMINOPHEN 325 MG TABLET PO PRN (09:11)
[2022-05-01] MEDS: CELECOXIB 100 MG CAPSULE PO SCH ×2 (11:28→16:43)
[2022-05-01] MEDS: SODIUM CHLORIDE 0.9% 1,000 ML IV SCH (12:10)
[2022-05-01] MEDS: VANCOMYCIN INJ 2,000 MG in SODIUM CHLORIDE 0.9% 500 ML IV SCH (15:18)
[2022-05-01] MEDS: ZINC OXIDE PASTE 113 GM TUBE TOP SCH (21:15)
[2022-05-01] MEDS: RIVAROXABAN 20 MG TABLET PO SCH (21:15)
[2022-05-02] MEDS: PIPERACILLIN/TAZOBACTAM 3,375 MG in SODIUM CHLORIDE 0.9% 100 ML IV SCH (03:26)
[2022-05-02 05:06] LABS: Basophils % 0.3 % (0.0-0.8); Eosinophils # 0.2 10*3/uL (0.0-0.87); Eosinophils % 1.2 % (0.00-10.9); Hematocrit 34.5 VOL% (35.7-47.0); Hemoglobin 10.9 GM/DL (12.0-16.0); Immature Granulocytes Absolute 0.15 #; Lymphocytes # 0.9 10*3/uL (1.4-4.0); Lymphocytes % 5.5 % (21.3-54.2); Mean Corpuscular HGB Conc 31.6 GM/DL (32-36); Mean Corpuscular Volume 90.6 FL (87-102); Mean Platelet Volume 9.7 FL (9.6-12.0); Monocytes % 6.8 % (1.7-12.7); Neutrophils % 85.2 % (38.7-73.9); Platelet Count 150 T/CUMM (130-400); Red Blood Count 3.81 MC/CUMM (3.8-5.5); Red Cell Distribution Width 14.6 % (9.3-17.3); White Blood Count 15.3 T/CUMM (4-12)
[2022-05-02 05:21] LABS: Osmolality,Calculated 275.8 MOS/KG (273-304); Potassium 3.8 MMOL/L (3.5-5.1)
[2022-05-02] MEDS: PANTOPRAZOLE 40 MG TABLET PO SCH (06:11)
[2022-05-02] MEDS: OMEGA 3 ACID ETHYL ESTERS 1 GM CAPSULE PO SCH (10:25)
[2022-05-02] MEDS: gemfibroziL 600 MG TABLET PO SCH ×2 (10:25→21:51)
[2022-05-02] MEDS: MULTIVITAMIN (CENTRUM) TABLET PO SCH (10:25)
[2022-05-02] MEDS: VITAMIN E 400 UNIT CAPSULE PO SCH (10:25)
[2022-05-02] MEDS: SPIRONOLACTONE 100 MG TABLET PO SCH (10:25)
[2022-05-02] MEDS: CALCIUM (CARBONATE)/VITAMIN D 600 MG-400 UNIT TABLET PO SCH ×2 (10:25→21:51)
[2022-05-02] MEDS: ASPIRIN EC 81 MG TABLET PO SCH (10:25)
[2022-05-02] MEDS: AMIODARONE 200 MG TABLET PO SCH ×2 (10:26→21:51)
[2022-05-02] MEDS: ZINC OXIDE PASTE 113 GM TUBE TOP SCH ×2 (10:26→21:56)
[2022-05-02] MEDS: GABAPENTIN 300 MG CAPSULE PO SCH ×2 (10:26→21:51)
[2022-05-02] MEDS: CELECOXIB 100 MG CAPSULE PO SCH ×2 (10:28→17:26)
[2022-05-02] MEDS: cefTRIAXone 2,000 MG in SODIUM CHLORIDE 0.9% 100 ML IV SCH (11:30)
[2022-05-02] MEDS: RIVAROXABAN 20 MG TABLET PO SCH (21:51)
[2022-05-03] MEDS: PANTOPRAZOLE 40 MG TABLET PO SCH (06:14)
[2022-05-03 06:45] LABS: Basophils # 0.1 10*3/uL (0.0-0.2); Basophils % 0.5 % (0.0-0.8); Eosinophils # 0.3 10*3/uL (0.0-0.87); Eosinophils % 1.9 % (0.00-10.9); Hematocrit 36.1 VOL% (35.7-47.0); Hemoglobin 11.4 GM/DL (12.0-16.0); Immature Granulocytes % 1.9 %; Immature Granulocytes Absolute 0.31 #; Lymphocytes # 1.1 10*3/uL (1.4-4.0); Lymphocytes % 6.8 % (21.3-54.2); Mean Corpuscular HGB Conc 31.6 GM/DL (32-36); Mean Corpuscular Volume 90.3 FL (87-102); Mean Platelet Volume 9.5 FL (9.6-12.0); Monocytes # 1.2 10*3/uL (0.11-0.8); Monocytes % 7.2 % (1.7-12.7); Neutrophils % 81.7 % (38.7-73.9); Platelet Count 183 T/CUMM (130-400); Red Cell Distribution Width 14.4 % (9.3-17.3); White Blood Count 16.2 T/CUMM (4-12)
[2022-05-03 07:01] LABS: Albumin 2.4 G/DL (3.4-5.0); Bilirubin,Total 0.5 MG/DL (0.20-1.00); Calcium 8.8 MG/DL (8.5-10.1); Osmolality,Calculated 274.1 MOS/KG (273-304); Total Protein 7.1 G/DL (6.4-8.2)
[2022-05-03] MEDS: SPIRONOLACTONE 100 MG TABLET PO SCH (09:56)
[2022-05-03] MEDS: ASPIRIN EC 81 MG TABLET PO SCH (09:56)
[2022-05-03] MEDS: gemfibroziL 600 MG TABLET PO SCH ×2 (09:56→20:45)
[2022-05-03] MEDS: GABAPENTIN 300 MG CAPSULE PO SCH ×2 (09:56→20:45)
[2022-05-03] MEDS: VITAMIN E 400 UNIT CAPSULE PO SCH (09:57)
[2022-05-03] MEDS: CALCIUM (CARBONATE)/VITAMIN D 600 MG-400 UNIT TABLET PO SCH ×2 (09:57→20:45)
[2022-05-03] MEDS: cefTRIAXone 2,000 MG in SODIUM CHLORIDE 0.9% 100 ML IV SCH (09:57)
[2022-05-03] MEDS: MULTIVITAMIN (CENTRUM) TABLET PO SCH (09:57)
[2022-05-03] MEDS: CELECOXIB 100 MG CAPSULE PO SCH ×2 (09:57→16:45)
[2022-05-03] MEDS: OMEGA 3 ACID ETHYL ESTERS 1 GM CAPSULE PO SCH (09:57)
[2022-05-03] MEDS: AMIODARONE 200 MG TABLET PO SCH ×2 (09:58→20:45)
[2022-05-03] MEDS: ZINC OXIDE PASTE 113 GM TUBE TOP SCH ×2 (09:58→20:52)
[2022-05-03] MEDS: MEROPENEM 500 MG in SODIUM CHLORIDE 0.9% 100 ML IV SCH ×2 (14:13→20:44)
[2022-05-03] MEDS: RIVAROXABAN 20 MG TABLET PO SCH (20:46)
[2022-05-04] MEDS: MEROPENEM 500 MG in SODIUM CHLORIDE 0.9% 100 ML IV SCH ×2 (02:47→09:03)
[2022-05-04 05:42] LABS: Basophils # 0.1 10*3/uL (0.0-0.2); Basophils % 0.9 % (0.0-0.8); Eosinophils # 0.4 10*3/uL (0.0-0.87); Eosinophils % 3.3 % (0.00-10.9); Hematocrit 35.8 VOL% (35.7-47.0); Hemoglobin 11.1 GM/DL (12.0-16.0); Immature Granulocytes % 7.8 %; Immature Granulocytes Absolute 1.01 #; Lymphocytes # 1.4 10*3/uL (1.4-4.0); Lymphocytes % 10.9 % (21.3-54.2); Mean Corpuscular Volume 91.1 FL (87-102); Mean Platelet Volume 9.3 FL (9.6-12.0); Monocytes % 7.7 % (1.7-12.7); Neutrophils % 69.4 % (38.7-73.9); Platelet Count 202 T/CUMM (130-400); Red Blood Count 3.93 MC/CUMM (3.8-5.5); Red Cell Distribution Width 14.6 % (9.3-17.3); White Blood Count 12.9 T/CUMM (4-12)
[2022-05-04] MEDS: PANTOPRAZOLE 40 MG TABLET PO SCH (05:48)
[2022-05-04 06:11] LABS: Albumin 2.3 G/DL (3.4-5.0); Bilirubin,Total 0.4 MG/DL (0.20-1.00); Calcium 8.7 MG/DL (8.5-10.1); Osmolality,Calculated 278.8 MOS/KG (273-304); Potassium 3.8 MMOL/L (3.5-5.1); Total Protein 7.1 G/DL (6.4-8.2)
[2022-05-04 06:38] LABS: Band Neutrophils 1 % (0-10); Eosinophils 1 % (0-10); Lymphocytes 19 % (20-55); Platelet Estimate Adequate; Total Cells Counted 100
[2022-05-04] MEDS: GABAPENTIN 300 MG CAPSULE PO SCH ×2 (09:01→22:04)
[2022-05-04] MEDS: MULTIVITAMIN (CENTRUM) TABLET PO SCH (09:01)
[2022-05-04] MEDS: gemfibroziL 600 MG TABLET PO SCH ×2 (09:01→22:04)
[2022-05-04] MEDS: VITAMIN E 400 UNIT CAPSULE PO SCH (09:01)
[2022-05-04] MEDS: ASPIRIN EC 81 MG TABLET PO SCH (09:02)
[2022-05-04] MEDS: CALCIUM (CARBONATE)/VITAMIN D 600 MG-400 UNIT TABLET PO SCH ×2 (09:02→22:04)
[2022-05-04] MEDS: CELECOXIB 100 MG CAPSULE PO SCH ×2 (09:02→16:04)
[2022-05-04] MEDS: SPIRONOLACTONE 100 MG TABLET PO SCH (09:02)
[2022-05-04] MEDS: AMIODARONE 200 MG TABLET PO SCH ×2 (09:02→22:05)
[2022-05-04] MEDS: OMEGA 3 ACID ETHYL ESTERS 1 GM CAPSULE PO SCH (09:05)
[2022-05-04] MEDS: ZINC OXIDE PASTE 113 GM TUBE TOP SCH ×2 (09:07→22:24)
[2022-05-04] MEDS: LEVOFLOXACIN INJ 750 MG/150 ML PREMIX IV SCH (11:23)
[2022-05-04] MEDS: RIVAROXABAN 20 MG TABLET PO SCH (22:04)
[2022-05-05] MEDS: PANTOPRAZOLE 40 MG TABLET PO SCH (06:04)
[2022-05-05 06:46] LABS: Basophils # 0.2 10*3/uL (0.0-0.2); Basophils % 1.2 % (0.0-0.8); Eosinophils # 0.5 10*3/uL (0.0-0.87); Eosinophils % 4.1 % (0.00-10.9); Hemoglobin 11.4 GM/DL (12.0-16.0); Immature Granulocytes % 14.9 %; Immature Granulocytes Absolute 1.93 #; Lymphocytes # 1.9 10*3/uL (1.4-4.0); Lymphocytes % 14.4 % (21.3-54.2); Mean Corpuscular HGB Conc 30.8 GM/DL (32-36); Mean Corpuscular Volume 92.3 FL (87-102); Mean Platelet Volume 9.4 FL (9.6-12.0); Monocytes # 0.8 10*3/uL (0.11-0.8); Monocytes % 5.9 % (1.7-12.7); Neutrophils % 59.5 % (38.7-73.9); Platelet Count 247 T/CUMM (130-400); Red Blood Count 4.01 MC/CUMM (3.8-5.5); Red Cell Distribution Width 14.3 % (9.3-17.3); White Blood Count 12.9 T/CUMM (4-12)
[2022-05-05 07:07] LABS: Albumin 2.2 G/DL (3.4-5.0); Bilirubin,Total 0.4 MG/DL (0.20-1.00); Osmolality,Calculated 281.5 MOS/KG (273-304); Potassium 4.2 MMOL/L (3.5-5.1)
[2022-05-05 07:14] LABS: Band Neutrophils 2 % (0-10); Eosinophils 4 % (0-10); Lymphocytes 16 % (20-55); Nucleated Red Blood Cells 1 /100 WBC (0-5); Total Cells Counted 100
[2022-05-05 07:15] LABS: Hypochromia Slight; Microcytosis Slight; Platelet Estimate Adequate
[2022-05-05] MEDS: SPIRONOLACTONE 100 MG TABLET PO SCH (08:52)
[2022-05-05] MEDS: OMEGA 3 ACID ETHYL ESTERS 1 GM CAPSULE PO SCH (08:52)
[2022-05-05] MEDS: gemfibroziL 600 MG TABLET PO SCH ×2 (08:52→22:18)
[2022-05-05] MEDS: MULTIVITAMIN (CENTRUM) TABLET PO SCH (08:52)
[2022-05-05] MEDS: ASPIRIN EC 81 MG TABLET PO SCH (08:52)
[2022-05-05] MEDS: VITAMIN E 400 UNIT CAPSULE PO SCH (08:53)
[2022-05-05] MEDS: CALCIUM (CARBONATE)/VITAMIN D 600 MG-400 UNIT TABLET PO SCH ×2 (08:53→22:17)
[2022-05-05] MEDS: GABAPENTIN 300 MG CAPSULE PO SCH ×2 (08:53→22:17)
[2022-05-05] MEDS: ZINC OXIDE PASTE 113 GM TUBE TOP SCH ×2 (08:53→22:18)
[2022-05-05] MEDS: CELECOXIB 100 MG CAPSULE PO SCH ×2 (08:53→16:59)
[2022-05-05] MEDS: AMIODARONE 200 MG TABLET PO SCH ×2 (08:53→22:18)
[2022-05-05] MEDS: LEVOFLOXACIN INJ 750 MG/150 ML PREMIX IV SCH (12:12)
[2022-05-05] MEDS: RIVAROXABAN 20 MG TABLET PO SCH (22:18)
[2022-05-06 05:16] LABS: Basophils % 0.3 % (0.0-0.8); Eosinophils # 0.5 10*3/uL (0.0-0.87); Hematocrit 36.8 VOL% (35.7-47.0); Hemoglobin 11.2 GM/DL (12.0-16.0); Immature Granulocytes % 18.3 %; Immature Granulocytes Absolute 2.33 #; Lymphocytes # 1.9 10*3/uL (1.4-4.0); Lymphocytes % 14.6 % (21.3-54.2); Mean Corpuscular HGB Conc 30.4 GM/DL (32-36); Mean Corpuscular Volume 90.4 FL (87-102); Mean Platelet Volume 8.8 FL (9.6-12.0); Monocytes # 0.8 10*3/uL (0.11-0.8); Monocytes % 6.3 % (1.7-12.7); Neutrophils % 56.5 % (38.7-73.9); Platelet Count 261 T/CUMM (130-400); Red Blood Count 4.07 MC/CUMM (3.8-5.5); Red Cell Distribution Width 14.4 % (9.3-17.3); White Blood Count 12.8 T/CUMM (4-12)
[2022-05-06] MEDS: PANTOPRAZOLE 40 MG TABLET PO SCH (05:31)
[2022-05-06 05:44] LABS: Band Neutrophils 2 % (0-10); Eosinophils 5 % (0-10); Lymphocytes 18 % (20-55); Myelocytes 2 %; Total Cells Counted 100
[2022-05-06 05:45] LABS: Hypochromia Slight; Microcytosis Slight; Platelet Estimate Normal; Polychromasia Slight
[2022-05-06 05:55] LABS: Albumin 2.3 G/DL (3.4-5.0); Bilirubin,Total 0.4 MG/DL (0.20-1.00); Osmolality,Calculated 277.8 MOS/KG (273-304); Potassium 4.1 MMOL/L (3.5-5.1); Total Protein 7.1 G/DL (6.4-8.2)
[2022-05-06] MEDS: SPIRONOLACTONE 100 MG TABLET PO SCH (08:03)
[2022-05-06] MEDS: MULTIVITAMIN (CENTRUM) TABLET PO SCH (08:03)
[2022-05-06] MEDS: gemfibroziL 600 MG TABLET PO SCH ×2 (08:04→20:41)
[2022-05-06] MEDS: ASPIRIN EC 81 MG TABLET PO SCH (08:04)
[2022-05-06] MEDS: FUROSEMIDE 40 MG TABLET PO SCH (08:04)
[2022-05-06] MEDS: CALCIUM (CARBONATE)/VITAMIN D 600 MG-400 UNIT TABLET PO SCH ×2 (08:04→20:41)
[2022-05-06] MEDS: CELECOXIB 100 MG CAPSULE PO SCH ×2 (08:04→16:16)
[2022-05-06] MEDS: GABAPENTIN 300 MG CAPSULE PO SCH ×2 (08:04→20:41)
[2022-05-06] MEDS: VITAMIN E 400 UNIT CAPSULE PO SCH (08:04)
[2022-05-06] MEDS: OMEGA 3 ACID ETHYL ESTERS 1 GM CAPSULE PO SCH (08:06)
[2022-05-06] MEDS: AMIODARONE 200 MG TABLET PO SCH ×2 (08:10→20:41)
[2022-05-06] MEDS: ZINC OXIDE PASTE 113 GM TUBE TOP SCH ×2 (08:11→20:42)
[2022-05-06] MEDS: LEVOFLOXACIN 750 MG TABLET PO SCH (11:18)
[2022-05-06] MEDS: RIVAROXABAN 20 MG TABLET PO SCH (20:41)
[2022-05-06] MEDS: NYSTATIN POWDER 15 GM BOTTLE TOP SCH (20:44)
[2022-05-07 05:29] LABS: Basophils # 0.1 10*3/uL (0.0-0.2); Basophils % 0.9 % (0.0-0.8); Eosinophils # 0.4 10*3/uL (0.0-0.87); Eosinophils % 3.5 % (0.00-10.9); Hematocrit 37.6 VOL% (35.7-47.0); Hemoglobin 11.7 GM/DL (12.0-16.0); Immature Granulocytes % 13.7 %; Immature Granulocytes Absolute 1.72 #; Lymphocytes # 1.9 10*3/uL (1.4-4.0); Mean Corpuscular HGB Conc 31.1 GM/DL (32-36); Mean Corpuscular Volume 90.4 FL (87-102); Mean Platelet Volume 8.7 FL (9.6-12.0); Monocytes # 0.8 10*3/uL (0.11-0.8); Neutrophils % 60.9 % (38.7-73.9); Platelet Count 284 T/CUMM (130-400); Red Blood Count 4.16 MC/CUMM (3.8-5.5); Red Cell Distribution Width 14.6 % (9.3-17.3); White Blood Count 12.6 T/CUMM (4-12)
[2022-05-07] MEDS: PANTOPRAZOLE 40 MG TABLET PO SCH (05:32)
[2022-05-07 05:48] LABS: Calcium 8.8 MG/DL (8.5-10.1); Osmolality,Calculated 277.8 MOS/KG (273-304)
[2022-05-07 05:54] LABS: Albumin 2.4 G/DL (3.4-5.0); Bilirubin,Total 0.5 MG/DL (0.20-1.00); Calcium 8.7 MG/DL (8.5-10.1); Osmolality,Calculated 279.7 MOS/KG (273-304); Potassium 4.2 MMOL/L (3.5-5.1); Total Protein 6.7 G/DL (6.4-8.2)
[2022-05-07 06:04] LABS: Band Neutrophils 5 % (0-10); Eosinophils 2 % (0-10); Lymphocytes 16 % (20-55); Metamyelocytes 1 %; Myelocytes 3 %; Total Cells Counted 100
[2022-05-07 06:05] LABS: Hypochromia Slight; Microcytosis Slight; Platelet Estimate Normal
[2022-05-07] MEDS ORDERED: ESTRADIOL 0.1 MG PATCH (1X WK) TRANSDERM SCH (09:00)
[2022-05-07] MEDS: ASPIRIN EC 81 MG TABLET PO SCH (10:47)
[2022-05-07] MEDS: SPIRONOLACTONE 100 MG TABLET PO SCH (10:48)
[2022-05-07] MEDS: FUROSEMIDE 40 MG TABLET PO SCH (10:48)
[2022-05-07] MEDS: OMEGA 3 ACID ETHYL ESTERS 1 GM CAPSULE PO SCH (10:48)
[2022-05-07] MEDS: VITAMIN E 400 UNIT CAPSULE PO SCH (10:48)
[2022-05-07] MEDS: gemfibroziL 600 MG TABLET PO SCH ×2 (10:48→21:25)
[2022-05-07] MEDS: GABAPENTIN 300 MG CAPSULE PO SCH ×2 (10:48→21:26)
[2022-05-07] MEDS: LEVOFLOXACIN 750 MG TABLET PO SCH (10:48)
[2022-05-07] MEDS: MULTIVITAMIN (CENTRUM) TABLET PO SCH (10:48)
[2022-05-07] MEDS: CALCIUM (CARBONATE)/VITAMIN D 600 MG-400 UNIT TABLET PO SCH ×2 (10:49→21:25)
[2022-05-07] MEDS: NYSTATIN POWDER 15 GM BOTTLE TOP SCH ×2 (10:49→21:30)
[2022-05-07] MEDS: CELECOXIB 100 MG CAPSULE PO SCH ×2 (10:49→18:42)
[2022-05-07] MEDS: ZINC OXIDE PASTE 113 GM TUBE TOP SCH ×2 (10:50→21:31)
[2022-05-07] MEDS: AMIODARONE 200 MG TABLET PO SCH ×2 (10:51→21:25)
[2022-05-07] MEDS ORDERED: TUBERCULIN SKIN TEST 0.1 ML SYRINGE INTRADERM ONE (16:14)
[2022-05-07] MEDS: RIVAROXABAN 20 MG TABLET PO SCH (21:26)
[2022-05-08] MEDS: PANTOPRAZOLE 40 MG TABLET PO SCH (05:59)
[2022-05-08] MEDS: CELECOXIB 100 MG CAPSULE PO SCH ×2 (10:28→17:33)
[2022-05-08] MEDS: GABAPENTIN 300 MG CAPSULE PO SCH ×2 (10:28→20:31)
[2022-05-08] MEDS: OMEGA 3 ACID ETHYL ESTERS 1 GM CAPSULE PO SCH (10:28)
[2022-05-08] MEDS: SPIRONOLACTONE 100 MG TABLET PO SCH (10:28)
[2022-05-08] MEDS: AMIODARONE 200 MG TABLET PO SCH ×2 (10:28→20:31)
[2022-05-08] MEDS: LEVOFLOXACIN 750 MG TABLET PO SCH (10:28)
[2022-05-08] MEDS: MULTIVITAMIN (CENTRUM) TABLET PO SCH (10:29)
[2022-05-08] MEDS: CALCIUM (CARBONATE)/VITAMIN D 600 MG-400 UNIT TABLET PO SCH ×2 (10:29→20:31)
[2022-05-08] MEDS: gemfibroziL 600 MG TABLET PO SCH ×2 (10:29→20:31)
[2022-05-08] MEDS: FUROSEMIDE 40 MG TABLET PO SCH (10:29)
[2022-05-08] MEDS: ASPIRIN EC 81 MG TABLET PO SCH (10:29)
[2022-05-08] MEDS: VITAMIN E 400 UNIT CAPSULE PO SCH (10:29)
[2022-05-08] MEDS: NYSTATIN POWDER 15 GM BOTTLE TOP SCH ×2 (10:34→21:48)
[2022-05-08] MEDS: ZINC OXIDE PASTE 113 GM TUBE TOP SCH ×2 (10:34→21:48)
[2022-05-08] MEDS: RIVAROXABAN 20 MG TABLET PO SCH (20:31)
[2022-05-09] MEDS: PANTOPRAZOLE 40 MG TABLET PO SCH (06:01)
[2022-05-09 07:52] VITALS: BP 126/68
[2022-05-09] MEDS: CALCIUM (CARBONATE)/VITAMIN D 600 MG-400 UNIT TABLET PO SCH (08:11)
[2022-05-09] MEDS: CELECOXIB 100 MG CAPSULE PO SCH (08:11)
[2022-05-09] MEDS: MULTIVITAMIN (CENTRUM) TABLET PO SCH (08:12)
[2022-05-09] MEDS: GABAPENTIN 300 MG CAPSULE PO SCH (08:12)
[2022-05-09] MEDS: VITAMIN E 400 UNIT CAPSULE PO SCH (08:12)
[2022-05-09] MEDS: LEVOFLOXACIN 750 MG TABLET PO SCH (08:12)
[2022-05-09] MEDS: OMEGA 3 ACID ETHYL ESTERS 1 GM CAPSULE PO SCH (08:13)
[2022-05-09] MEDS: ASPIRIN EC 81 MG TABLET PO SCH (08:13)
[2022-05-09] MEDS: gemfibroziL 600 MG TABLET PO SCH (08:13)
[2022-05-09] MEDS: AMIODARONE 200 MG TABLET PO SCH (08:26)
[2022-05-09] MEDS: SPIRONOLACTONE 100 MG TABLET PO SCH (08:26)
[2022-05-09] MEDS: FUROSEMIDE 40 MG TABLET PO SCH (08:27)
== END 2022-05-09 10:43 | disposition swing bed (61) | DRG 603 ==
LOC: EDSEX → EDUNIT# → N.ED 09:55 → N.EDINP 09:55 → N.2E 17:45 → SUATTDRO 05-01 09:03
PROVIDERS: ADMIT Internal Medicine; ATTEND Internal Medicine

== ENCOUNTER 2022-06-10 20:02 | Inpatient (IN) ==
[2022-06-10] MEDS ORDERED: SODIUM CHLORIDE 0.9% 1,000 ML IV STA (20:38)
[2022-06-10 21:11] LABS: Basophils # 0.1 10*3/uL (0.0-0.2); Basophils % 0.3 % (0.0-0.8); Eosinophils # 0.1 10*3/uL (0.0-0.87); Eosinophils % 0.4 % (0.00-10.9); Hemoglobin 12.5 GM/DL (12.0-16.0); Immature Granulocytes % 1.1 %; Lymphocytes # 0.9 10*3/uL (1.4-4.0); Lymphocytes % 5.1 % (21.3-54.2); Mean Corpuscular HGB Conc 30.5 GM/DL (32-36); Mean Corpuscular Volume 90.7 FL (87-102); Mean Platelet Volume 8.8 FL (9.6-12.0); Monocytes # 0.6 10*3/uL (0.11-0.8); Monocytes % 3.7 % (1.7-12.7); Neutrophils % 89.4 % (38.7-73.9); Platelet Count 214 T/CUMM (130-400); Red Blood Count 4.52 MC/CUMM (3.8-5.5); Red Cell Distribution Width 15.7 % (9.3-17.3); White Blood Count 17.53 T/CUMM (4-12)
[2022-06-10 21:20] LABS: INR 1.1; PT Patient Result 11.7 SECS (10.1-12.1)
[2022-06-10 21:32] LABS: Albumin 2.9 G/DL (3.4-5.0); Bilirubin,Total 0.6 MG/DL (0.20-1.00); Calcium 8.7 MG/DL (8.5-10.1); Osmolality,Calculated 267.5 MOS/KG (273-304); Potassium 4.2 MMOL/L (3.5-5.1)
[2022-06-10 22:36] LABS: Amorphous Crystals,Urine Occasional /HPF (Few); Bilirubin,Urine Negative (Negative); Blood, Urine Moderate mg/dL (Negative); Glucose,Urine (UA) Negative (Negative); Ketones,Urine 15 mg/dL (Negative); Nitrite,Urine Negative (Negative); Protein,Urine Negative (Negative); RBC,Urine 25-30 /HPF (0-4); Urine Appearance Clear (Clear); Urine Color Yellow (Yellow); Urine Urobilinogen 0.2 eU/dL (<2.0); Urine pH 7.5 (4.5-8.0)
[2022-06-10] MEDS ORDERED: VANCOMYCIN INJ 1,000 MG in SODIUM CHLORIDE 0.9% 250 ML IV STA (22:53)
[2022-06-11] MEDS ORDERED: ALBUTEROL/IPRATROPIUM 3 ML NEB RESP TX PRN (00:38)
[2022-06-11] MEDS ORDERED: NICOTINE 21 MG/24 HR PATCH TRANSDERM PRN (00:38)
[2022-06-11] MEDS ORDERED: ACETAMINOPHEN 325 MG TABLET PO PRN (00:38)
[2022-06-11] MEDS ORDERED: MORPHINE 2 MG/1 ML SYRINGE IV PRN (00:38)
[2022-06-11] MEDS ORDERED: GLUCAGON 1 MG VIAL IM PRN (00:38)
[2022-06-11] MEDS ORDERED: ZALEPLON 5 MG CAPSULE PO PRN (00:38)
[2022-06-11] MEDS ORDERED: diphenhydrAMINE CAP 25 MG CAPSULE PO PRN (00:38)
[2022-06-11] MEDS ORDERED: guaiFENesin/DM ER 600-30 MG TABLET PO PRN (00:38)
[2022-06-11] MEDS ORDERED: ONDANSETRON 4 MG/2 ML VIAL IV PRN (00:38)
[2022-06-11] MEDS ORDERED: hydrALAZINE 20 MG/1 ML VIAL IV PRN (00:38)
[2022-06-11] MEDS ORDERED: DEXTROSE 10% 250 ML BAG IV PRN (00:45)
[2022-06-11 01:03] VITALS: BP 103/46
[2022-06-11] MEDS: CLINDAMYCIN INJ 600 MG/50 ML PREMIX IV SCH ×2 (01:09→10:56)
[2022-06-11 05:54] LABS: Basophils % 0.2 % (0.0-0.8); Eosinophils % 0.2 % (0.00-10.9); Hematocrit 36.7 VOL% (35.7-47.0); Hemoglobin 11.5 GM/DL (12.0-16.0); Immature Granulocytes % 1.1 %; Immature Granulocytes Absolute 0.16 #; Lymphocytes # 0.5 10*3/uL (1.4-4.0); Lymphocytes % 3.4 % (21.3-54.2); Mean Corpuscular HGB Conc 31.3 GM/DL (32-36); Mean Corpuscular Volume 85.7 FL (87-102); Mean Platelet Volume 8.6 FL (9.6-12.0); Monocytes # 0.4 10*3/uL (0.11-0.8); Monocytes % 2.5 % (1.7-12.7); Neutrophils % 92.6 % (38.7-73.9); Platelet Count 181 T/CUMM (130-400); Red Blood Count 4.28 MC/CUMM (3.8-5.5); Red Cell Distribution Width 15.9 % (9.3-17.3); White Blood Count 14.65 T/CUMM (4-12)
[2022-06-11 06:13] LABS: Calcium 8.2 MG/DL (8.5-10.1); Osmolality,Calculated 268.2 MOS/KG (273-304); Potassium 3.5 MMOL/L (3.5-5.1)
[2022-06-11 06:17] LABS: Band Neutrophils 1 % (0-10); Hypochromia Slight; Lymphocytes 6 % (20-55); Microcytosis Slight; Platelet Estimate Adequate; Total Cells Counted 100
[2022-06-11] MEDS ORDERED: AMIODARONE 200 MG TABLET PO SCH (08:00)
[2022-06-11] MEDS ORDERED: VANCOMYCIN INJ 2,000 MG in SODIUM CHLORIDE 0.9% 500 ML IV SCH (08:00)
[2022-06-11] MEDS ORDERED: MEROPENEM 500 MG in SODIUM CHLORIDE 0.9% 100 ML IV SCH (08:30)
[2022-06-11] MEDS ORDERED: FUROSEMIDE 40 MG TABLET PO SCH (09:00)
[2022-06-11] MEDS ORDERED: HEPARIN 5,000 UNIT/1 ML VIAL SUBCUT SCH (09:00)
[2022-06-11] MEDS ORDERED: lisinopriL 10 MG TABLET PO SCH (09:00)
[2022-06-11] MEDS ORDERED: SPIRONOLACTONE 100 MG TABLET PO SCH (09:00)
[2022-06-11] MEDS ORDERED: ASPIRIN EC 81 MG TABLET PO SCH (09:00)
[2022-06-11] MEDS ORDERED: BISACODYL 5 MG TABLET PO SCH (09:00)
[2022-06-11] MEDS ORDERED: gemfibroziL 600 MG TABLET PO SCH (09:00)
[2022-06-11] MEDS ORDERED: PANTOPRAZOLE 40 MG TABLET PO SCH (09:00)
[2022-06-11] MEDS ORDERED: RIVAROXABAN 20 MG TABLET PO SCH (21:00)
== END 2022-06-11 13:06 | disposition home health service (06) | DRG 603 ==
LOC: N.ED 20:02 → SUATTDRO 23:47 → N.EDINP 23:47 → N.ICU 06-11 01:49
PROVIDERS: ADMIT Hospitalist; ATTEND Internal Medicine